=== PATIENT | female | born 1955 | race Caucasian/White ===

== ENCOUNTER → 2016-08-15 | Outpatient (CLI) | payer OTHER ==
--- NOTE | 2016-08-15 11:11 | RAD ---
Indication: Lung cancer screening. Patient has 45 year smoking history. Low-dose noncontrast axial imaging through the chest was performed without contrast. No axillary lymphadenopathy is detected. There is an 11 millimeter right paratracheal lymph node. This is superiorly located. There is a larger lymph node more inferiorly in the right paratracheal location measuring approximately 19 mm. This is indeterminate. No definite hilar mass is detected. Shotty lymph nodes in the AP window are noted. No pericardial or pleural fluid is identified. Parenchymal evaluation demonstrates some ill-defined groundglass opacities in the posterior left lower lobe, nonspecific. No discrete lung mass is identified. There is a tiny density noted anteriorly in the left upper lobe image 59 measuring 4 mm. A tiny subpleural nodule in the right upper lobe image 64 is noted measuring 2 to 3 mm. Additional tiny 2 to 3 mm nodules are present as well. Upper abdomen demonstrates a large stone within the gallbladder. The bony structures are nonacute. Impression: 1. Tiny pulmonary nodules, as described indeterminate. In addition there are some prominent lymph nodes in the mediastinum, largest right paratracheal location, as described. This is indeterminate as well. Close interval follow-up with repeat CT chest with contrast in 3 months be recommended to confirm stability. 2. Cholelithiasis.
== END | disposition home or self-care (01) ==
LOC: CT 09:10
PROVIDERS: ATTEND Physician Assistant Medical
DX: Z12.2 Encounter for screening for malignant neoplasm of respiratory organs (principal); K80.20 Calculus of gallbladder without cholecystitis without obstruction
CPT/HCPCS: 71250

== ENCOUNTER → 2016-10-14 | Outpatient (CLI) | payer OTHER ==
[~2016-10-14] MED LIST: CONTRAST GIVEN MC PRN; IOHEXOL 300 MG/ML 75 ML VIAL IV ONE
--- NOTE | 2016-10-14 10:36 | RAD ---
CT of the chest with contrast, 10/14/2016: History: Adenopathy, lung nodules Multidetector CT imaging was performed following an IV bolus injection of iodinated contrast material. Comparison is made to a study from 08/15/2016. The thoracic aorta is unremarkable. Several small mediastinal lymph nodes are seen. The largest of these lies in the paratracheal region. It measures 19 x 11 mm on the axial scans and appears unchanged in size since the previous study. The other smaller lymph nodes are also unchanged. No hilar adenopathy is seen. A 4 mm subsolid nodule is present in the anterior aspect of left upper lobe on image 60 of series #6. It appears to be unchanged. A 3-4 mm nodule is seen laterally in the left lower lobe on image 169 of series #6. A tiny 2 to 3 mm nodule in the lateral aspect of the right upper lobe as seen on image 69 of series #6 is also unchanged. A similar nodule in the lateral aspect of the right upper lobe seen on image 119 of series #6 is also unchanged. There are several other very tiny nodules in the 2-3 mm range in both lungs which also appear to be unchanged. There are small blebs and parenchymal scars in the apices. A few scattered linear scars are seen in other portions of both lungs. There are mild scattered emphysematous changes. No new parenchymal nodule, mass or dense consolidation is seen. There is no evidence of pleural fluid. A 13 mm nodule in the right adrenal gland can be seen in retrospect on the previous study. It is of low density compatible with a benign adenoma. There is mild left renal scarring. IMPRESSION: 1. Unchanged minimal mediastinal adenopathy. 2. Numerous small bilateral pulmonary nodules are unchanged and may be granulomas and/or scars. Further CT surveillance is suggested to confirm stability. PQRS Compliance Statement: One or more of the following individualized dose reduction techniques were utilized for this examination: 1. Automated exposure control 2. Adjustment of the mA and/or kV according to patient size 3. Use of iterative reconstruction technique
== END | disposition home or self-care (01) ==
LOC: CT 08:06
PROVIDERS: ATTEND Internal Medicine Critical Care Medicine
DX: R59.0 Localized enlarged lymph nodes (principal); R91.1 Solitary pulmonary nodule; J44.9 Chronic obstructive pulmonary disease, unspecified; J45.909 Unspecified asthma, uncomplicated; I10 Essential (primary) hypertension; Z87.891 Personal history of nicotine dependence
CPT/HCPCS: 71260

== ENCOUNTER → 2017-06-23 | Outpatient (CLI) | payer OTHER ==
--- NOTE | 2017-06-23 09:10 | RAD ---
CT of the chest without contrast, 06/23/2017: History: Follow-up pulmonary nodules Noncontrast scans were obtained and compared to a study from 10/14/2016. A 4 mm nonsolid nodule in the anterior aspect of left upper lobe as seen on image 52 of series #3 is unchanged. There is a small hazy groundglass opacity in the left upper lobe as seen on image 117 of series #3 which is unchanged. A 3-4 mm nodule in the lateral aspect of the left lower lobe seen on image 160 of series #3 is unchanged. Several other very tiny nodules in the 2-3 mm range and tiny groundglass opacities in both lungs also appear to be unchanged. The stability suggests a benign etiology, perhaps a combination of granulomas and scars. A component of respiratory bronchiolitis may be present. No definite new or enlarging lung opacities are seen. There are emphysematous changes in the lungs with scattered parenchymal scars. There is no evidence of pleural fluid. There is mild calcific plaquing of the thoracic aorta. Minimal coronary artery calcifications are present. Several small mediastinal lymph nodes are again noted and are stable. The largest of these measures 13 x 15 mm. There is an unchanged small low density right adrenal nodule, most likely a benign adenoma. IMPRESSION: 1. Emphysema with parenchymal scarring. 2. Stable tiny pulmonary nodules and groundglass opacities. 3. Minimal unchanged mediastinal adenopathy. PQRS Compliance Statement: One or more of the following individualized dose reduction techniques were utilized for this examination: 1. Automated exposure control 2. Adjustment of the mA and/or kV according to patient size 3. Use of iterative reconstruction technique
== END | disposition home or self-care (01) ==
LOC: CT 08:14
PROVIDERS: ATTEND Internal Medicine Pulmonary Disease
DX: J43.9 Emphysema, unspecified (principal); J21.9 Acute bronchiolitis, unspecified
CPT/HCPCS: 71250

== ENCOUNTER → 2018-07-02 | Outpatient (CLI) | payer OTHER ==
--- NOTE | 2018-07-02 10:45 | RAD ---
Examination: CT chest without contrast HISTORY: History of follow-up lung nodules COMPARISON: 06/23/2017 TECHNIQUE: Axial CT images of the chest were performed without contrast. Coronal and sagittal reformats are performed Exposure: One or more of the following individualized dose reduction techniques were utilized for this examination: 1. Automated exposure control 2. Adjustment of the mA and/or kV according to patient size 3. Use of iterative reconstruction technique. FINDINGS: The central airways are patent. Few mediastinal lymph nodes identified with largest measuring 1.4 cm in the pretracheal region similar to prior exam. The heart size grossly appears unremarkable. There is a 4 mm nodule identified in the left lower lobe of the lungs similar to prior exam. There is a faint 3 mm nodule identified in the left upper lobe of the lung laterally similar to prior exam. There are faint vague subcentimeter nodules identified in the left and right upper lobe of the lungs with the largest measuring 7 mm in the left upper lobe similar to prior exam. No evidence of pleural effusion or pneumothorax. Mild lung emphysematous changes. The visualized noncontrasted liver, spleen, adrenals grossly appears unremarkable. Calcified gallstone identified within the gallbladder measuring 2.3 cm. No evidence of lytic bony destructive lesion identified. IMPRESSION: 1. Subcentimeter lung nodules identified in the left upper lobe, left lower lobe lung with the largest measuring 7 mm in the left upper lobe of the lungs similar to prior exam. 2. Unchanged mediastinal lymph nodes. 3. Mild lung emphysematous changes. 4. Cholelithiasis. Electronically signed by: Dennis Limon MD (07/02/2018 10:42 AM) [place] [id number]
== END | disposition home or self-care (01) ==
LOC: CT 09:00
PROVIDERS: ATTEND Internal Medicine Critical Care Medicine
DX: R91.8 Other nonspecific abnormal finding of lung field (principal); R59.0 Localized enlarged lymph nodes; K80.20 Calculus of gallbladder without cholecystitis without obstruction
CPT/HCPCS: 71250

== ENCOUNTER → 2021-07-02 | Outpatient (CLI) | payer MEDICARE ==
--- NOTE | 2021-07-02 11:29 | RAD ---
CT chest without contrast, low dose lung cancer screening protocol. HISTORY: Lung cancer screening exam. History of nodules. 50 pack-year history of smoking. COMPARISON STUDY: CT chest without contrast July 02, 2018. TECHNIQUE: Axial CT images of the chest were performed without contrast. Coronal and sagittal reforma ts are performed Exposure: One or more of the following individualized dose reduction techniques were utilized for thi s examination: 1. Automated exposure control 2. Adjustment of the mA and/or kV according to patient size 3. Use of iterative reconstruction technique. FINDINGS: Heart size is normal. Small mediastinal lymph nodes are similar to comparison exam. No significant pe ricardial effusion is seen. Scattered subcentimeter pulmonary nodules are unchanged from comparison study. 4 mm nodule identifie d in the left lower lobe of the lungs similar to prior exam. 3 mm nodule identified in the left uppe r lobe of the lung, similar to prior exam. 7 mm in the left upper lobe similar to prior exam. Other scattered subcentimeter and smaller nodules noted. All visualized nodules appear grossly similar. No evidence of acute infiltrate, pleural effusion or pneumothorax. Mild lung emphysematous changes. No acute abnormality of the upper abdomen. Cholelithiasis again noted. IMPRESSION: 1. Stable multifocal subcentimeter pulmonary nodules largest measuring 7 mm in left upper lobe. Stabi lity over more than 2 years suggests benign benignity. 2. Lung RADS category 2, continued annual low-dose screening recommended.. Electronically signed by: Eleazar Beach MD (07/02/2021 11:27 AM) [id number]
== END ==
LOC: CT 09:46
PROVIDERS: ATTEND Family Medicine
DX: Z12.2 Encounter for screening for malignant neoplasm of respiratory organs (principal); R91.8 Other nonspecific abnormal finding of lung field; K80.20 Calculus of gallbladder without cholecystitis without obstruction; J43.9 Emphysema, unspecified; F17.218 Nicotine dependence, cigarettes, with other nicotine-induced disorders
CPT/HCPCS: 71271